=== PATIENT | male | born 1990 | race Caucasian/White ===

== ENCOUNTER → 2018-03-30 | Outpatient (REF) | payer BC | LOC: M SFHCCLAY 10:22 | PROVIDERS: ATTEND Family Medicine | DX: R63.5 Abnormal weight gain (principal); Z83.49 Family history of other endocrine, nutritional and metabolic diseases; Z83.3 Family history of diabetes mellitus ==

== ENCOUNTER → 2018-04-02 | Outpatient (CLI) | payer BC ==
--- NOTE | 2018-04-03 02:53 | REP ---
Clinical: Neck swelling. Technique: Real time pagan scale and color evaluation using linear high frequency transducer. Findings: Ultrasound examination of the neck demonstrates multiple normal appearing lymph nodes at the site of swelling and palpable mass. Lymph nodes measure up to 7 x 3 x 8 mm and 8 x 3 x 6 mm. No abnormal fluid collection or mass lesion identified. Impression: Neck swelling consistent with normal appearing lymph nodes. Electronically Signed by Adolfo Thompson MD 04/03/2018 02:45 A
== END ==
LOC: M RAD 11:24
PROVIDERS: ATTEND Family Medicine
DX: R22.1 Localized swelling, mass and lump, neck (principal)

== ENCOUNTER → 2020-01-31 | Outpatient (CLI) | payer SELFPAY | LOC: M LABSMTC 16:43 | PROVIDERS: ATTEND Pediatrics | DX: Z20.828 Contact with and (suspected) exposure to other viral communicable diseases (principal) ==